=== PATIENT | male | born 1955 | race Caucasian/White ===

== ENCOUNTER → 2018-09-01 | Day surgery (SDC) | payer OTHER ==
[2018-08-20 12:33] LABS: BASOPHILS % 0.3 % (0.0-1.0); EOSINOPHILS # (AUTO) 0.1 (0.0-0.4); EOSINOPHILS % 1.2 % (0.0-6.0); HEMATOCRIT 48.3 % (38.2-49.6); HEMOGLOBIN 16.4 g/dL (14.0-18.0); LYMPHOCYTES % 28.7 % (18.0-39.1); MEAN CORPUSCULAR HEMOGLOBIN 31.7 pg (28-32); MEAN CORPUSCULAR VOLUME 93.4 fL (81-99); MONOCYTES # (AUTO) 0.9 (0.2-0.8); MONOCYTES % 12.8 % (4.4-11.3); NEUTROPHILS # (AUTO) 3.9 (2.1-6.9); NEUTROPHILS % 56.7 % (38.7-80.0); PLATELET COUNT 193 x10e3/uL (140-360); RED BLOOD COUNT 5.17 x10e6/uL (4.3-5.7); RED CELL DISTRIBUTION WIDTH 13.6 % (11.7-14.4)
[~2018-09-01] MED LIST: FENTANYL CITRATE/PF 100MCG/2 ML INJ ONE; FERROUS SULFATE PO; HYOSCYAMINE SULFATE 0.5 MG/ML INJ ONE; LORTAB 7.5-5001 EACH PO; METOPROLOL TART25 MG PO; MIDAZOLAM HCL 2 MG/2 ML VIAL ONE; PLAVIX75 MG PO; PRAVASTATIN SOD40 MG PO; PROPOFOL IV EMULSION 10 MG/ML 50 ML VIAL ONE; SOTALOL120 MG PO; WARFARIN SODIUM5 MG PO; XARELTO20 MG PO
[2018-09-01 10:35] VITALS: BP 144/93
--- NOTE | 2018-09-01 11:32 | Operative Report ---
DATE OF PROCEDURE: September 01, 2018 REFERRING PHYSICIAN: Dr. Humza Gage PROCEDURE PERFORMED: Colonoscopy and polypectomy. INDICATIONS FOR COLONOSCOPY: Personal history of colon cancer, surveillance colonoscopy. MEDICATION: Patient was done under MAC. Please see anesthesiologist's note. PROCEDURE: With the patient in the left lateral decubitus position, the flexible fiberoptic Olympus colonoscope was inserted into the rectum with ease and advanced all the way to the cecum. The scope was then withdrawn slowly. Mucosa overlying the cecum appeared to be within normal limits. There was a minute polyp that was hot biopsied from the ascending colon. The transverse and descending grossly appeared to be within normal limits. Anastomosis was noted at approximately 18 cm from the anal verge, and there was no evidence of recurrence. A minute polyp was hot biopsied from the rectum. The scope was then retroflexed into the distal rectum, and small internal hemorrhoids were noted, none of which was actively bleeding. The scope was then straightened out. It was subsequently withdrawn. Patient tolerated the procedure well. IMPRESSION 1. Ascending colon polyp, hot biopsied. 2. Anastomosis at approximately 18 cm from the anal verge. No evidence of recurrence. 3. Rectal polyp, hot biopsied. 4. Internal hemorrhoids, none actively bleeding. PLAN: Follow up histology. Initiate high-fiber, low-fat diet. Initiate high-fiber supplement. Patient might benefit from a followup colonoscopy in 2 to 3 years. Job#: [id number] cc:CATHERINE GAGE DO
== END | disposition home or self-care (01) ==
LOC: ENDO 07:13
PROVIDERS: ATTEND Internal Medicine Gastroenterology
DX: Z08 Encounter for follow-up examination after completed treatment for malignant neoplasm (principal); D12.2 Benign neoplasm of ascending colon; K62.1 Rectal polyp; Z85.038 Personal history of other malignant neoplasm of large intestine; Z98.0 Intestinal bypass and anastomosis status; K64.8 Other hemorrhoids; I10 Essential (primary) hypertension; I48.91 Unspecified atrial fibrillation; E78.00 Pure hypercholesterolemia, unspecified; F41.9 Anxiety disorder, unspecified; Z88.6 Allergy status to analgesic agent; Z01.810 Encounter for preprocedural cardiovascular examination; Z01.812 Encounter for preprocedural laboratory examination; Z79.02 Long term (current) use of antithrombotics/antiplatelets; Z68.31 Body mass index [BMI] 31.0-31.9, adult; Z80.0 Family history of malignant neoplasm of digestive organs
CPT/HCPCS: 36415; 45384; 85025; 93005; J1980; J2250; 45378

== ENCOUNTER 2018-09-06 19:24 | Observation (INO) | payer OTHER ==
[~2018-09-06] VITALS: Ht 177.8 cm; Wt 94.5 kg
[~2018-09-06 19:24] MED LIST changes: -FENTANYL CITRATE/PF 100MCG/2 ML INJ ONE; -HYOSCYAMINE SULFATE 0.5 MG/ML INJ ONE; -MIDAZOLAM HCL 2 MG/2 ML VIAL ONE; -PROPOFOL IV EMULSION 10 MG/ML 50 ML VIAL ONE
[2018-09-06 20:32] LABS: BASOPHILS % 0.3 % (0.0-1.0); EOSINOPHILS # (AUTO) 0.1 (0.0-0.4); EOSINOPHILS % 0.8 % (0.0-6.0); HEMATOCRIT 43.6 % (38.2-49.6); HEMOGLOBIN 14.7 g/dL (14.0-18.0); LYMPHOCYTES # (AUTO) 2.1 (1.0-3.2); MEAN CORPUSCULAR HEMOGLOBIN 31.3 pg (28-32); MEAN CORPUSCULAR HGB CONC 33.7 g/dL (31-35); MONOCYTES # (AUTO) 0.8 (0.2-0.8); MONOCYTES % 8.2 % (4.4-11.3); NEUTROPHILS # (AUTO) 6.9 (2.1-6.9); NEUTROPHILS % 69.4 % (38.7-80.0); PLATELET COUNT 244 x10e3/uL (140-360); RED BLOOD COUNT 4.69 x10e6/uL (4.3-5.7); RED CELL DISTRIBUTION WIDTH 13.7 % (11.7-14.4)
[2018-09-06 20:44] LABS: INR 1.27
[2018-09-06 20:45] LABS: PARTIAL THROMBOPLASTIN TIME 33.8 seconds (23.8-35.5)
[2018-09-06 20:46] LABS: ALANINE AMINOTRANSFERASE 9 IU/L (0-55); ALBUMIN 4.2 g/dL (3.5-5.0); ALBUMIN/GLOBULIN RATIO 1.4 (0.8-2.0); ALKALINE PHOSPHATASE 100 IU/L (40-150); ANION GAP 15.1 mmol/L (8-16); BLOOD UREA NITROGEN 17 mg/dL (7-26); BUN/CREATININE RATIO 16 (6-25); CALCIUM 9.1 mg/dL (8.4-10.2); CARBON DIOXIDE 22 mmol/L (22-29); CHLORIDE 108 mmol/L (98-107); CREATININE, SERUM 1.05 mg/dL (0.72-1.25); EST GLOMERULAR FILTRATION RATE > 60 ML/MIN (60-); GLUCOSE 108 mg/dL (74-118); POTASSIUM 4.1 mmol/L (3.5-5.1); SODIUM 141 mmol/L (136-145)
[2018-09-06] MEDS: SODIUM CHLORIDE 0.9% 1000ML 1,000 ML IV SCH (21:57)
[2018-09-06 22:45] VITALS: BP 148/80
--- NOTE | 2018-09-06 22:46 | NUR ---
patient is a new admit that arrived via wheelchair. patient is alert and oriented. patient is awake and talking. patient has been helped into the bed. bed is in lowest position and call jimenez is within reach. will continue to monitor patient.
[2018-09-06] MEDS ORDERED: PHYTONADIONE 10 MG/ML AMP SQ STA (23:25)
[2018-09-07] VITALS (8 sets, daily range): BP systolic 130–148; BP diastolic 74–81
[2018-09-07 00:33] LABS: HEMATOCRIT 37.8 % (38.2-49.6); HEMOGLOBIN 12.9 g/dL (14.0-18.0)
[2018-09-07 05:36] LABS: HEMATOCRIT 37.7 % (38.2-49.6); HEMOGLOBIN 12.5 g/dL (14.0-18.0)
[2018-09-07] MEDS: SODIUM CHLORIDE 0.9% 1000ML 1,000 ML IV SCH ×3 (05:45→22:32)
--- NOTE | 2018-09-07 06:00 | NUR ---
message left with answering service regarding consultation for Dr Polo Bonds. awaiting call back from .
--- NOTE | 2018-09-07 07:02 | NUR ---
report given to day nurse. patient is resting comfortably in bed. bed is in lowest position and call jimenez is within reach.
--- NOTE | 2018-09-07 07:30 | NUR ---
PATIENT IN BED RESTING WITH NO RESPIRATORY DISTRESS, DENIED PAIN AT THIS TIME. TELE B[address] BED IN LOWER POSITION, CALL LIGHT AT REACH.
[2018-09-07] MEDS: PANTOPRAZOLE 40 MG 10ML VIAL IV SCH (09:13)
--- NOTE | 2018-09-07 11:10 | NUR ---
MD IN TO SEE PATIENT, NO BLEEDING NOTED AT THIS TIME. PATIENT ON CLEAR LIQUID DIET.
[2018-09-07 12:30] LABS: HEMATOCRIT 33.8 % (38.2-49.6); HEMOGLOBIN 11.3 g/dL (14.0-18.0)
--- NOTE | 2018-09-07 13:45 | NUR ---
Visit made by the Spiritual Care Department Pastoral Visitor, Lauren Lazo. PV provided pastoral presence, hospitality, and supportive listening. Pastoral Visitor informed pt/family of the scope of [employer] and availability. KOLTON PINTO Gette[facility] Spiritual Care Department O: [phone] Pager: [phone] ([phone] number calling from)
--- NOTE | 2018-09-07 14:17 | Consultation ---
DATE OF CONSULTATION: September 07, 2018 CARDIOLOGY CONSULTATION Thank you so much for asking me to see this nice man again in consultation. Mr. Nolan is a pleasant 63-year-old man known to me for many years, who presented to the emergency room last evening with the complaint of bright red blood per rectum. HISTORY OF PRESENT ILLNESS: The patient had colonoscopy with polypectomy last week, and resumed his warfarin 3 days later, but then yesterday noted bright red blood in the stool. PAST MEDICAL HISTORY: Significant for intermittent atrial fibrillation first diagnosed in 2009. He has long-standing hyperlipidemia. He had partial colectomy of the descending colon for colon cancer in July of 2013 followed by chemotherapy. He had C-spine fusion in 1981 and hernia repair as a child. PERSONAL/SOCIAL HISTORY: He does not smoke. Rarely drinks any alcohol at all. FAMILY HISTORY: Mother had palpitations and anticoagulation. REVIEW OF SYSTEMS CARDIAC: The patient had ablation of atrial fib in March of 2018, and tells me that he was recently taken off of his sotalol. PHYSICAL EXAMINATION GENERAL: At this time, shows a pleasant alert man who is comfortable. VITALS: Blood pressure 130/80, pulse 80 and regular. HEENT: Unremarkable. THORAX: Heart sounds S1 and S2 equal. No murmurs. LUNGS: Clear. ABDOMEN: Protuberant. Normal bowel sounds. EXTREMITIES: No cyanosis, clubbing or edema. EKG shows sinus rhythm. Most recent hemoglobin is 12.5. ASSESSMENT 1. Lower gastrointestinal bleeding after polypectomy while taking oral anticoagulant. 2. History of colon cancer. 3. History of atrial fibrillation. 4. Hypertension. PLAN: Agree with holding his Xarelto for 3-5 additional days. The patient looks clinically stable to me. I think he can be discharged and follow up as an outpatient. Thank you for asking me to see him in consultation. Job#: [id number] RI cc:CATHERINE GAGE DO
--- NOTE | 2018-09-07 15:31 | NUR ---
PATIENT ASSISTED TO THE RESTROOM AND BACK TO BED. IV FLUID INFUSING ORDERED. CALL LIGHT AT REACH.
[2018-09-07 18:24] LABS: HEMATOCRIT 34.1 % (38.2-49.6); HEMOGLOBIN 11.2 g/dL (14.0-18.0)
--- NOTE | 2018-09-07 19:04 | NUR ---
Report received and walking rounds complete. Pt resting in bed and in no apparent distress. All safety measures ensured and pt call jimenez near.
[2018-09-08] VITALS: BP 128/76
[2018-09-08 04:00] VITALS: BP 138/73
[2018-09-08 05:15] LABS: HEMATOCRIT 34.3 % (38.2-49.6); HEMOGLOBIN 11.1 g/dL (14.0-18.0)
[2018-09-08] MEDS: SODIUM CHLORIDE 0.9% 1000ML 1,000 ML IV SCH (06:43)
--- NOTE | 2018-09-08 07:23 | NUR ---
report given to oncoming nurse
[2018-09-08 08:00] VITALS: BP 137/85
[2018-09-08] MEDS: PANTOPRAZOLE 40 MG 10ML VIAL IV SCH (09:04)
[2018-09-08 11:39] VITALS: BP 158/94
--- NOTE | 2018-09-08 12:04 | NUR ---
discharge approved by all doctors. will sent home and hold xarelto x3 days.
[2018-09-08 12:26] LABS: HEMATOCRIT 33.7 % (38.2-49.6); HEMOGLOBIN 11.3 g/dL (14.0-18.0)
== END 2018-09-08 13:30 | disposition home or self-care (01) ==
LOC: ER 19:24 → ERHOLD 21:46 → IMCU 22:40
DX: K92.2 Gastrointestinal hemorrhage, unspecified (principal); D62 Acute posthemorrhagic anemia; Z79.01 Long term (current) use of anticoagulants; I10 Essential (primary) hypertension; I48.91 Unspecified atrial fibrillation; E78.5 Hyperlipidemia, unspecified; Z85.038 Personal history of other malignant neoplasm of large intestine; Z82.49 Family history of ischemic heart disease and other diseases of the circulatory system; E87.8 Other disorders of electrolyte and fluid balance, not elsewhere classified; Z88.6 Allergy status to analgesic agent; Z91.018 Allergy to other foods; Z98.0 Intestinal bypass and anastomosis status
CPT/HCPCS: 36415 ×3; 80053; 85014 ×2; 85018 ×2; 85025; 85610; 85730; 86850; 86900; 93005; 99284; C9113 ×2; G0378 ×3; J3430; J7030 ×3

== ENCOUNTER 2020-10-13 09:23 | Observation (INO) | payer OTHER ==
[~2020-10-13] VITALS: Ht 177.8 cm; Wt 104.3 kg
[2020-10-13 09:49] LABS: BASOPHILS % 0.4 % (0.0-1.0); EOSINOPHILS % 0.3 % (0.0-6.0); HEMATOCRIT 49.4 % (38.2-49.6); LYMPHOCYTES % 24.9 % (18.0-39.1); MEAN CORPUSCULAR HEMOGLOBIN 30.9 pg (28-32); MEAN CORPUSCULAR HGB CONC 34.4 g/dL (31-35); MEAN CORPUSCULAR VOLUME 89.8 fL (81-99); MONOCYTES # (AUTO) 0.7 (0.2-0.8); MONOCYTES % 8.8 % (4.4-11.3); NEUTROPHILS # (AUTO) 5.2 (2.1-6.9); NEUTROPHILS % 65.2 % (38.7-80.0); PLATELET COUNT 235 x10e3/uL (140-360); RED CELL DISTRIBUTION WIDTH 13.3 % (11.7-14.4)
[2020-10-13] MEDS: METOPROLOL TARTRATE INJ 1 MG/ML VIAL IV NR ×2 (09:49→09:59)
[2020-10-13 09:55] LABS: INR 1.74; PROTHROMBIN TIME 21.7 seconds (11.9-14.5)
[2020-10-13 09:56] LABS: PARTIAL THROMBOPLASTIN TIME 39.9 seconds (23.8-35.5)
[2020-10-13 10:04] LABS: ALANINE AMINOTRANSFERASE 9 IU/L (0-55); ALBUMIN 4.1 g/dL (3.5-5.0); ALBUMIN/GLOBULIN RATIO 1.1 (0.8-2.0); ALKALINE PHOSPHATASE 105 IU/L (40-150); ANION GAP 15.1 mmol/L (8-16); BLOOD UREA NITROGEN 13 mg/dL (7-26); BUN/CREATININE RATIO 12 (6-25); CALCIUM 9.1 mg/dL (8.4-10.2); CARBON DIOXIDE 21 mmol/L (22-29); CHLORIDE 108 mmol/L (98-107); CREATINE KINASE 86 IU/L (30-200); CREATININE, SERUM 1.06 mg/dL (0.72-1.25); EST GLOMERULAR FILTRATION RATE > 60 ML/MIN (60-); GLUCOSE 145 mg/dL (74-118); MAGNESIUM 2.1 MG/DL (1.3-2.1); POTASSIUM 4.1 mmol/L (3.5-5.1); SODIUM 140 mmol/L (136-145)
[2020-10-13] MEDS ORDERED: METOPROLOL TARTRATE INJ 1 MG/ML VIAL ONE (10:06)
[2020-10-13 10:24] LABS: THYROID STIMULATING HORMONE 1.627 uIU/mL (0.350-4.940)
[2020-10-13] MEDS ORDERED: SOTALOL HCL 80 MG TAB PO NR (11:00)
[2020-10-13] MEDS ORDERED: ONDANSETRON HCL INJ 2MG/ML 2ML 2 MG/ML VIAL IV PRN (11:15)
[2020-10-13] MEDS: SOTALOL HCL 80 MG TAB PO SCH ×2 (11:41→17:34)
[2020-10-13] MEDS: METOPROLOL TARTRATE 50 MG TAB PO SCH ×2 (11:41→17:34)
[2020-10-13 11:49] LABS: COLOR,URINE YELLOW (YELLOW)
[2020-10-13 11:50] LABS: CLARITY,URINE CLEAR (CLEAR); LEUKOCYTE ESTERASE ,URINE NEGATIVE (NEGATIVE); NITRITE,URINE NEGATIVE (NEGATIVE)
[2020-10-13 11:51] LABS: KETONES,URINE TRACE (NEGATIVE); PROTEIN,URINE DIPSTICK 1+ (NEGATIVE); URINE UROBILINOGEN 0.2 mg/dL (0.2 - 1); WBC,URINE (MAN) 0-5 /HPF (0-5)
[2020-10-13 11:52] LABS: BACTERIA,URINE RARE /HPF; EPITHELIAL CELLS,URINE FEW /LPF; RBC,URINE 0-5 /HPF (0-5)
[2020-10-13 15:00] VITALS: BP 144/118
[2020-10-13 16:51] LABS: CREATINE KINASE MB 1.4 ng/mL (0-5.0)
[2020-10-13 17:45] VITALS: BP 144/118
[2020-10-13] MEDS ORDERED: XARELTO20 MG PO (18:26)
[2020-10-13] MEDS ORDERED: LOSARTAN POTASS25 MG PO (18:26)
[2020-10-13] MEDS ORDERED: SOTALOL80 MG PO (18:26)
[2020-10-13] MEDS ORDERED: METOPROLOL TARTRATE INJ 1 MG/ML VIAL IV PRN (19:30)
[2020-10-13] MEDS ORDERED: SOTALOL HCL 80 MG TAB PO ONE (19:45)
[2020-10-13] MEDS ORDERED: METOPROLOL TARTRATE 50 MG TAB PO ONE (19:45)
[2020-10-13 20:16] VITALS: BP 140/107
[2020-10-13 20:18] VITALS: BP 138/106
[2020-10-13 20:23] VITALS: BP 138/106
[2020-10-13 23:51] VITALS: BP 102/78
[2020-10-14 03:13] LABS: CREATINE KINASE MB 1.4 ng/mL (0-5.0)
[2020-10-14 05:06] VITALS: BP 108/75
[2020-10-14 06:25] LABS: BASOPHILS % 0.3 % (0.0-1.0); EOSINOPHILS # (AUTO) 0.1 (0.0-0.4); EOSINOPHILS % 0.8 % (0.0-6.0); HEMATOCRIT 47.5 % (38.2-49.6); HEMOGLOBIN 15.9 g/dL (14.0-18.0); LYMPHOCYTES # (AUTO) 1.8 (1.0-3.2); LYMPHOCYTES % 27.5 % (18.0-39.1); MEAN CORPUSCULAR HEMOGLOBIN 31.3 pg (28-32); MEAN CORPUSCULAR HGB CONC 33.5 g/dL (31-35); MEAN CORPUSCULAR VOLUME 93.5 fL (81-99); MONOCYTES # (AUTO) 0.7 (0.2-0.8); MONOCYTES % 10.5 % (4.4-11.3); NEUTROPHILS % 60.4 % (38.7-80.0); PLATELET COUNT 210 x10e3/uL (140-360); RED BLOOD COUNT 5.08 x10e6/uL (4.3-5.7); RED CELL DISTRIBUTION WIDTH 13.4 % (11.7-14.4)
[2020-10-14 06:49] LABS: ALANINE AMINOTRANSFERASE 9 IU/L (0-55); ALBUMIN 3.6 g/dL (3.5-5.0); ALBUMIN/GLOBULIN RATIO 1.1 (0.8-2.0); ALKALINE PHOSPHATASE 85 IU/L (40-150); ANION GAP 15.4 mmol/L (8-16); BLOOD UREA NITROGEN 13 mg/dL (7-26); BUN/CREATININE RATIO 13 (6-25); CALCIUM 8.8 mg/dL (8.4-10.2); CARBON DIOXIDE 24 mmol/L (22-29); CHLORIDE 105 mmol/L (98-107); CHOL/HDL RATIO 5.6 (3.9-4.7); CHOLESTEROL 146 MD/DL (0-199); CREATININE, SERUM 0.98 mg/dL (0.72-1.25); EST GLOMERULAR FILTRATION RATE > 60 ML/MIN (60-); GLUCOSE 96 mg/dL (74-118); HDL CHOLESTEROL 26 MG/DL (40-60); LDL CHOLESTEROL 92 MG/DL (60-130); POTASSIUM 4.4 mmol/L (3.5-5.1); SODIUM 140 mmol/L (136-145); TRIGLYCERIDES 142 MG/DL (0-149)
[2020-10-14 08:19] VITALS: BP 123/93
[2020-10-14 08:35] VITALS: BP 123/93
[2020-10-14] MEDS ORDERED: ATORVASTATIN 10 MG TAB PO SCH (09:00)
[2020-10-14] MEDS ORDERED: METOPROLOL TARTRATE 25 MG TAB PO SCH (09:00)
[2020-10-14] MEDS ORDERED: RIVAROXABAN 20 MG TABLET PO SCH (09:00)
[2020-10-14] MEDS ORDERED: LOSARTAN POTASSIUM 25 MG TAB PO SCH (09:00)
[2020-10-14] MEDS ORDERED: SOTALOL HCL 80 MG TAB PO SCH (09:00)
[2020-10-14 11:24] VITALS: BP 122/87
== END 2020-10-14 14:22 | disposition home or self-care (01) ==
LOC: ER 09:41 → ERHOLD 11:07 → MED/SURG3 15:50
DX: I48.21 Permanent atrial fibrillation (principal); Z79.01 Long term (current) use of anticoagulants; E66.9 Obesity, unspecified; Z68.33 Body mass index [BMI] 33.0-33.9, adult; I49.5 Sick sinus syndrome; I10 Essential (primary) hypertension; I25.10 Atherosclerotic heart disease of native coronary artery without angina pectoris; Z20.822 Contact with and (suspected) exposure to COVID-19
CPT/HCPCS: 36415 ×2; 71045; 80053 ×2; 80061; 81001; 82550 ×2; 82553 ×2; 83735; 83880; 84443; 84484 ×2; 85025 ×2; 85610; 85730; 87086; 93005 ×2; 93306; 99284; G0378 ×2; U0002

== ENCOUNTER → 2021-02-15 | Outpatient (CLI) | payer OTHER ==
[~2021-02-15] MED LIST changes: +LOSARTAN POTASS25 MG PO; +SOTALOL80 MG PO
== END ==
LOC: US 09:07
PROVIDERS: ATTEND Family Medicine
DX: N02.9 Recurrent and persistent hematuria with unspecified morphologic changes (principal); R10.9 Unspecified abdominal pain
CPT/HCPCS: 76700; 76857